=== PATIENT | male | born 1990 | race Caucasian/White ===

== ENCOUNTER 2024-11-01 18:49 | Observation (INO) ==
[2024-11-01] MEDS: morphine 4 MG/ML VIAL IV ONE (19:14)
[2024-11-01] MEDS: KETOROLAC 30 MG/ML VIAL IV ONE (19:14)
[2024-11-01] MEDS: ACETAMINOPHEN 1,000 MG/100 ML BAG IV ONE (19:15)
[2024-11-01] MEDS: ceFAZolin 1 GM VIAL IV SCH (19:28)
[2024-11-01] MEDS: cefTRIAXone 2 GM in DEXTROSE 5% IN WATER 50 ML IV ONE (19:30)
[2024-11-01 19:39] LABS: Basophils # (Auto) 0.12 K/mcL (0.00-0.30); Basophils % (Auto) 1.1 % (0.0-2.0); Eosinophils # (Auto) 0.22 K/mcL (0.00-0.70); Eosinophils % (Auto) 1.9 % (0.0-7.0); Hematocrit 39.4 % (40.1-51.0); Hemoglobin 12.8 g/dL (13.7-17.5); Lymphocytes # (Auto) 1.76 K/mcL (1.50-4.80); Lymphocytes % (Auto) 15.6 % (15.5-49.0); Mean Cell Volume 91.2 fL (80.0-100.0); Mean Corpuscular HGB Conc 32.5 g/dL (31.0-36.0); Mean Platelet Volume 11.5 fL (8.8-12.5); Monocytes # (Auto) 1.28 K/mcL (0.10-0.90); Monocytes % (Auto) 11.3 % (1.0-12.0); Neutrophils % (Auto) 69.7 % (38.0-78.0); Platelet Count 292 K/mcL (140-440); RBC 4.32 M/mcL (4.63-6.08); Red Cell Distribution Width 12.9 % (11.5-14.5); WBC 11.3 K/mcL (4.5-11.0)
[2024-11-01 19:51] LABS: ALT/SGPT 47 U/L (<40); AST/SGOT 25 U/L (<40); Albumin/Globulin Ratio 1.5 (1.0-2.3); Alkaline Phosphatase 69 U/L (39-117); Bilirubin,Total 0.4 mg/dL (0.1-1.0); Blood Urea Nitrogen 14 mg/dL (6-20); Calcium 8.6 mg/dL (8.6-10.4); Carbon Dioxide 24 mmol/L (22-30); Chloride 104 mmol/L (96-108); Globulin 2.7 gm/dL (2.2-3.7); Glomerular Filtration Rate 117; Glucose 79 mg/dL (70-105); Potassium 4.1 mmol/L (3.3-5.1); Sodium 138 mmol/L (133-145)
[2024-11-01] MEDS: DOXYCYCLINE HYCLATE 100 MG TABLET.ORL PO ONE (21:47)
[2024-11-01] MEDS: AMOXICILLIN/POTASSIUM CLAV 875 MG TABLET PO ONE (21:48)
[2024-11-01] MEDS ORDERED: IBUPROFEN 600 MG TABLET PO PRN (22:41)
[2024-11-01] MEDS ORDERED: ONDANSETRON 4 MG/2 ML VIAL IV PRN (22:41)
[2024-11-01] MEDS ORDERED: oxyCODONE IR 5 MG TABLET PO PRN (22:41)
[2024-11-01] MEDS ORDERED: ACETAMINOPHEN 325 MG TABLET PO PRN (22:41)
[2024-11-01] MEDS ORDERED: hydrOXYzine 25 MG TABLET PO PRN (22:41)
[2024-11-01] MEDS ORDERED: MAG HYDROX/AL HYDROX/SIMETH 30 ML ORAL.SUSP PO PRN (22:41)
[2024-11-01] MEDS: 0.9 % SODIUM CHLORIDE 10 ML SYRINGE IV SCH (22:59)
[2024-11-01] MEDS: LACTATED RINGERS 1,000 ML IV SCH (22:59)
[2024-11-02 06:52] LABS: Basophils # (Auto) 0.11 K/mcL (0.00-0.30); Basophils % (Auto) 1.3 % (0.0-2.0); Eosinophils # (Auto) 0.19 K/mcL (0.00-0.70); Eosinophils % (Auto) 2.2 % (0.0-7.0); Hematocrit 37.7 % (40.1-51.0); Hemoglobin 12.4 g/dL (13.7-17.5); Lymphocytes # (Auto) 1.95 K/mcL (1.50-4.80); Mean Cell Volume 92.9 fL (80.0-100.0); Mean Corpuscular HGB Conc 32.9 g/dL (31.0-36.0); Mean Platelet Volume 11.4 fL (8.8-12.5); Monocytes # (Auto) 0.91 K/mcL (0.10-0.90); Monocytes % (Auto) 10.7 % (1.0-12.0); Neutrophils % (Auto) 62.4 % (38.0-78.0); Platelet Count 274 K/mcL (140-440); RBC 4.06 M/mcL (4.63-6.08); Red Cell Distribution Width 12.9 % (11.5-14.5); WBC 8.5 K/mcL (4.5-11.0)
[2024-11-02] MEDS ORDERED: SUMAtriptan SUCCINATE 50 MG TABLET PO PRN (07:15)
[2024-11-02 07:46] LABS: ALT/SGPT 41 U/L (<40); AST/SGOT 21 U/L (<40); Albumin 3.8 gm/dL (3.2-5.2); Albumin/Globulin Ratio 1.6 (1.0-2.3); Alkaline Phosphatase 65 U/L (39-117); Bilirubin,Total 0.6 mg/dL (0.1-1.0); Blood Urea Nitrogen 12 mg/dL (6-20); Calcium 8.2 mg/dL (8.6-10.4); Carbon Dioxide 25 mmol/L (22-30); Chloride 105 mmol/L (96-108); Globulin 2.4 gm/dL (2.2-3.7); Glomerular Filtration Rate 131; Glucose 87 mg/dL (70-105); Potassium 3.7 mmol/L (3.3-5.1); Sodium 139 mmol/L (133-145)
[2024-11-02] MEDS ORDERED: AMOXICILLIN/POTASSIUM CLAV 875 MG TABLET PO SCH (08:00)
[2024-11-02] MEDS ORDERED: predniSONE 5 MG TABLET PO SCH (08:00)
[2024-11-02] MEDS: DIVALPROEX SODIUM ER 250 MG TABLET PO SCH (08:40)
[2024-11-02] MEDS: AMOXICILLIN/POTASSIUM CLAV 875 MG TABLET PO SCH (08:41)
[2024-11-02] MEDS: busPIRone 5 MG TABLET PO SCH (08:41)
[2024-11-02] MEDS: VITAMIN D3 125 MCG TABLET PO SCH (08:42)
[2024-11-02] MEDS: DULoxetine 30 MG CAPSULE PO SCH (08:42)
[2024-11-02] MEDS: BACLOFEN 10 MG TABLET PO SCH (08:42)
[2024-11-02] MEDS: predniSONE 5 MG TABLET PO SCH (08:42)
[2024-11-02] MEDS: buPROPion 75 MG TABLET PO SCH (08:42)
[2024-11-02] MEDS: GABAPENTIN 400 MG CAPSULE PO SCH (08:42)
[2024-11-02] MEDS: LORATADINE 10 MG TABLET PO SCH (08:42)
[2024-11-02] MEDS: OMEPRAZOLE 20 MG CAPSULE PO SCH (08:42)
[2024-11-02] MEDS: HEPARIN 5,000 UNIT/ML VIAL SQ SCH (09:27)
[2024-11-02] MEDS: BUPRENORPHINE/NALOXONE 4MG/1MG ORAL FILM SL SCH (09:27)
[2024-11-02] MEDS: sulfaSALAzine 500 MG TABLET PO SCH (09:28)
[2024-11-02] MEDS: DOXYCYCLINE HYCLATE 100 MG TABLET.ORL PO SCH (11:09)
[2024-11-02 11:25] VITALS: TEMP 96.5; O2SAT 92
[2024-11-02] MEDS: FLUTICASONE PROPIONATE SPRAY.NAS NS SCH (11:44)
[2024-11-02] MEDS ORDERED: sulfaSALAzine 500 MG TABLET PO SCH (21:00)
[2024-11-02] MEDS ORDERED: ARIPIPRAZOLE 10 MG TABLET PO SCH (21:00)
[2024-11-05] MEDS ORDERED: predniSONE 5 MG TABLET PO SCH (08:00)
== END 2024-11-02 11:50 | disposition home or self-care (01) ==
LOC: MEDSUR 18:49 → ED 18:49 → MEDSUR 22:49
PROVIDERS: ADMIT Student in an Organized Health Care Education/Training Program; ATTEND Student in an Organized Health Care Education/Training Program